=== PATIENT | male | born 1960 | race Two or more races ===

== ENCOUNTER 2021-03-31 10:47 | Emergency (ER) | payer MEDICAID ==
[~2021-03-31] VITALS: Ht 160 cm; Wt 42.0 kg
[2021-03-31] MEDS: GENTAMICIN 0.3% OPHTH DROPS 5ML LEFTEYE SCH ×2 (12:15→16:53)
[2021-03-31] MEDS ORDERED: CIPROFLOXACIN 0.3% OPHTH SOLN 2.5ML LEFTEYE SCH (13:00)
[2021-03-31] MEDS ORDERED: DEXT15DR28 LEFTEYE ×2 (14:20)
[2021-03-31] MEDS ORDERED: CIPR1VIA2 OP (14:20)
[2021-03-31 16:35] VITALS: BP 160/86
== END 2021-03-31 17:38 | disposition short-term general hospital (02) ==
LOC: ER 11:05
DX: S05.02XA Injury of conjunctiva and corneal abrasion without foreign body, left eye, initial encounter (principal); H11.422 Conjunctival edema, left eye; H20.052 Hypopyon, left eye; I10 Essential (primary) hypertension; X58.XXXA Exposure to other specified factors, initial encounter; Y93.9 Activity, unspecified; Y92.9 Unspecified place or not applicable; Z20.822 Contact with and (suspected) exposure to COVID-19
CPT/HCPCS: 82962; 87426; 99285